=== PATIENT | male | born 1960 ===

== ENCOUNTER 2019-08-13 06:03 | Day surgery (SDC) | payer OTHER | END 2019-08-13 10:25 | disposition home or self-care (01) | LOC: AMB-ENDOS 06:03 → ADM 15:00 | PROVIDERS: ATTEND Surgery | DX: D12.3 Benign neoplasm of transverse colon (principal); Z12.11 Encounter for screening for malignant neoplasm of colon ==

== ENCOUNTER 2021-02-01 08:31 | Day surgery (SDC) | payer OTHER | END 2021-02-01 13:35 | disposition home or self-care (01) | LOC: AMB-ENDOS 08:31 | PROVIDERS: ATTEND Surgery | DX: K62.1 Rectal polyp (principal); Z20.822 Contact with and (suspected) exposure to COVID-19 ==